=== PATIENT | male | born 1945 | race Caucasian/White ===

== ENCOUNTER 2018-10-27 17:53 | Observation (INO) | payer MEDICARE, OTHER ==
[~2018-10-27] VITALS: Ht 185.4 cm; Wt 105.3 kg
[~2018-10-27 17:53] MED LIST: CIPRO 500MG TA500 MG PO; GLUCOPHAGE1000 MG PO; NO HOME MEDICATIONS; NORCO 325 MG-51 TAB PO; ZOFRAN 4MG T4 MG/TAB PO
[2018-10-27] MEDS ORDERED: LIPITOR 40MG TA40 MG PO (18:36)
[2018-10-27] MEDS ORDERED: GLUCOTROL 5M5 MG/TAB PO (18:37)
[2018-10-27 19:31] LABS: COLLECTION METHOD CLEAN CATCH
[2018-10-27 19:41] LABS: BASO # 0.1 (0.0-0.2); BASO % 0.5 % (0.0-2.0); EOS # 0.2 (0.0-0.7); EOS % 1.6 % (0-4.0); HEMATOCRIT 39.9 % (42.0-52.0); HEMOGLOBIN 13.5 g/dl (13.5-18.0); LYMPH % 9.7 % (20.0-51.0); MEAN CELL VOLUME 89 fl (80.0-100.0); MEAN CORPUSCULAR HEMOGLOBIN 30 pg (27.0-31.0); MEAN CORPUSCULAR HGB CONC 34 g/dl (33.0-37.0); MEAN PLATELET VOLUME 10.4 fl (7.4-10.4); MONO # 0.9 (0.1-0.6); MONO % 8.4 % (1.7-9.3); PLATELET COUNT 387 K/mm3 (130-400); RED BLOOD COUNT 4.48 M/mm3 (4.20-5.60)
[2018-10-27 19:44] LABS: INR 1.1 (0.8-3.0); PROTHROMBIN TIME 13.3 SECONDS (9.7-12.8)
[2018-10-27 19:50] LABS: ALANINE AMINOTRANSFERASE 46 U/L (21-72); ALBUMIN 3.6 gm/dL (3.5-5.0); ALKALINE PHOSPHATASE 103 U/L (50-136); ANION GAP 13 mmol/L (7-16); AST,SGOT 33 U/L (15-37); BILIRUBIN,TOTAL 0.7 mg/dL (0.0-1.0); BLOOD UREA NITROGEN 21 mg/dL (9-20); CALCIUM 8.8 mg/dL (8.4-10.2); CARBON DIOXIDE 21 mmol/L (22-30); CHLORIDE 101 mmol/L (98-107); CREATININE, serum 0.94 (0.66-1.25); GLUCOSE 287 mg/dL (74-106); POTASSIUM 4.5 mmol/L (3.4-5.0); SODIUM 136 mmol/L (137-145); TOTAL PROTEIN 7.5 gm/dL (6.4-8.2)
[2018-10-27 20:00] LABS: TROPONIN-I < 0.012 ng/mL (0.000-0.035)
[2018-10-27 20:01] LABS: C-REACTIVE PROTEIN 16.4 mg/dL (0.0-0.9)
[2018-10-27 20:07] LABS: PH 5 (5-8); SQUAMOUS EPITHELIAL 0-2 /hpf; URINE APPEARANCE Turbid; URINE BACTERIA Rare /hpf; URINE BILIRUBIN Negative (NEGATIVE); URINE BLOOD 2+ (NEGATIVE); URINE COLOR Yellow; URINE GLUCOSE 3+ (NEGATIVE); URINE KETONE Negative (NEGATIVE); URINE LEUKOCYTE ESTERASE 3+ (NEGATIVE); URINE NITRATE Positive (NEGATIVE); URINE PROTEIN(semi-quant) 1+ (NEGATIVE); URINE UROBILINOGEN Negative (NEGATIVE)
--- NOTE | 2018-10-27 22:46 | NUR ---
Pt. arrived to the floor via wheelchair. Pt. is A&OX3, assessment complete. INT to lt. hand. Pt. denies pain or other needs, call light within reach.
[2018-10-27 23:05] VITALS: BP 107/78; PULSE 86; TEMP 97.7
[2018-10-28] VITALS (7 sets, daily range): BP systolic 107–148; BP diastolic 61–93; PULSE 80–90; TEMP 97.7–98.6
[2018-10-28 06:58] LABS: HEMOGLOBIN 11.8 g/dl (13.5-18.0); MEAN CELL VOLUME 90 fl (80.0-100.0); MEAN CORPUSCULAR HEMOGLOBIN 30 pg (27.0-31.0); MEAN CORPUSCULAR HGB CONC 34 g/dl (33.0-37.0); MEAN PLATELET VOLUME 10.3 fl (7.4-10.4); PLATELET COUNT 315 K/mm3 (130-400); RED BLOOD COUNT 3.93 M/mm3 (4.20-5.60); REDCELL DISTRIBUTION WIDTH-CV 13.3 % (11.5-14.5)
[2018-10-28 07:11] LABS: ANION GAP 10 mmol/L (7-16); BLOOD UREA NITROGEN 17 mg/dL (9-20); CALCIUM 7.9 mg/dL (8.4-10.2); CARBON DIOXIDE 22 mmol/L (22-30); CHLORIDE 105 mmol/L (98-107); CREATININE, serum 0.84 (0.66-1.25); GLUCOSE 253 mg/dL (74-106); SODIUM 137 mmol/L (137-145)
[2018-10-28 07:18] LABS: ACETONE,SERUM NEGATIVE; HEMATOCRIT 35.2 % (42.0-52.0)
[2018-10-28 08:06] LABS: BAND 2 % (0-10); EOSINOPHIL 1 % (0-4); LYMPHOCYTE 24 % (20.0-51.0); NEUTROPHILS 61 % (42.0-75.2); PLATELET ESTIMATE NORMAL (NORMAL)
--- NOTE | 2018-10-28 11:08 | NUR ---
SW met with the patient to discuss discharge plan. The patient lives alone in [place]. He states his sister, Yajaira, lives here in town. He reports independence with ADLs and does not have any DME. The patient's PCP is Dr. Jono Garcia and he receives his medications through [facility] and the [facility]. He reports no difficulties obtaining his meds. The patient does not have advanced directives and he was not interested in completing them at this time. The patient states his next of kin is his sisters, Yajaira and Demetria. The patient plans to return home upon discharge. No additional needs a at this time.
--- NOTE | 2018-10-28 20:45 | NUR ---
Pt. sitting up in bed at this time. Pt. is A&OX3, assessment is complete. IV to lt. hand patent, IV fluids infusing per orders. Pt. denies pain or other needs, call light within reach.
[2018-10-29 04:19] VITALS: BP 128/71; PULSE 78; TEMP 98.6
[2018-10-29 07:05] LABS: MEAN CELL VOLUME 91 fl (80.0-100.0); MEAN CORPUSCULAR HEMOGLOBIN 30 pg (27.0-31.0); MEAN CORPUSCULAR HGB CONC 33 g/dl (33.0-37.0); MEAN PLATELET VOLUME 10.4 fl (7.4-10.4); PLATELET COUNT 301 K/mm3 (130-400); RED BLOOD COUNT 3.72 M/mm3 (4.20-5.60); REDCELL DISTRIBUTION WIDTH-CV 13.4 % (11.5-14.5)
[2018-10-29 07:23] LABS: CALCIUM 7.7 mg/dL (8.4-10.2); CHOLESTEROL RISK RATIO 6.8; CREATININE, serum 0.76 (0.66-1.25); POTASSIUM 3.7 mmol/L (3.4-5.0)
[2018-10-29 07:46] LABS: HEMATOCRIT 33.8 % (42.0-52.0)
[2018-10-29 07:58] VITALS: BP 112/66; PULSE 74; TEMP 98.8
[2018-10-29 08:28] LABS: BAND 5 % (0-10); EOSINOPHIL 3 % (0-4); LYMPHOCYTE 8 % (20.0-51.0); NEUTROPHILS 76 % (42.0-75.2); PLATELET ESTIMATE NORMAL (NORMAL)
[2018-10-29] MEDS ORDERED: FLOMAX 0.40.4 MG/CAP PO (08:56)
[2018-10-29] MEDS ORDERED: GLUCOTROL XL10 MG PO (08:57)
[2018-10-29] MEDS ORDERED: OMNICEF 300MG300 MG PO (08:58)
[2018-10-29] MEDS ORDERED: FREESTYLE PREC1 EAC5 MC (09:18)
[2018-10-29] MEDS ORDERED: LANCETS MC (09:18)
[2018-10-29] MEDS ORDERED: GLUCOSE TEST ST1 DEV MC (09:18)
--- NOTE | 2018-10-29 09:30 | NUR ---
SW attended clinical rounds. The patient is to discharge back home today, 10/29. The patient requested that SW contact his sister, Yajaira, to inform for transport back home. SW contacted his sister and she plans to bring the patient back home. No additional needs at this time.
--- NOTE | 2018-10-29 10:00 | NUR ---
Patient alert and oriented, answers questions appropriately. See assessment. No c/o urinary frequency, hesitancy or burning. States voiding adequate amounts. Encouraged fluid intake. No other c/o at this time.
--- NOTE | 2018-10-29 11:41 | NUR ---
First visit from the hydrogen treater. No needs right now.
--- NOTE | 2018-10-29 12:01 | NUR ---
Discharge instructions reviewed with patient and sister, verbalized understanding. Discharged via wheelchair to auto/home with sister at 1140.
== END 2018-10-29 11:40 | disposition home or self-care (01) ==
LOC: COL.ER 17:53 → SURG 21:37
PROVIDERS: Emergency Medicine; Nurse Practitioner; Nurse Practitioner Family; ADMIT Family Medicine
DX: N39.0 Urinary tract infection, site not specified (principal); R53.81 Other malaise; E11.40 Type 2 diabetes mellitus with diabetic neuropathy, unspecified; E78.5 Hyperlipidemia, unspecified; E87.1 Hypo-osmolality and hyponatremia; N40.0 Benign prostatic hyperplasia without lower urinary tract symptoms; Z87.891 Personal history of nicotine dependence; Z88.2 Allergy status to sulfonamides; Z93.3 Colostomy status; Z85.038 Personal history of other malignant neoplasm of large intestine
CPT/HCPCS: A4216; G0378; J0696; J1815; J7030; Q9967

== ENCOUNTER → 2018-11-20 | Outpatient (CLI) | payer MEDICARE, OTHER ==
[~2018-11-20] MED LIST changes: +FLOMAX 0.40.4 MG/CAP PO; +FREESTYLE PREC1 EAC5 MC; +GLUCOSE TEST ST1 DEV MC; +GLUCOTROL 5M5 MG/TAB PO; +GLUCOTROL XL10 MG PO; +LANCETS MC; +LIPITOR 40MG TA40 MG PO; +OMNICEF 300MG300 MG PO
== END ==
LOC: DIA.ED 14:07
DX: E11.40 Type 2 diabetes mellitus with diabetic neuropathy, unspecified (principal); E78.5 Hyperlipidemia, unspecified; E66.9 Obesity, unspecified
CPT/HCPCS: G0108

== ENCOUNTER → 2018-12-19 | Outpatient (CLI) | payer MEDICARE, OTHER | LOC: DIA.ED 07:13 | DX: E11.9 Type 2 diabetes mellitus without complications (principal); E11.40 Type 2 diabetes mellitus with diabetic neuropathy, unspecified; E78.5 Hyperlipidemia, unspecified; E66.9 Obesity, unspecified ==

== ENCOUNTER → 2019-01-22 | Outpatient (CLI) | payer MEDICARE | LOC: DIA.ED 08:56 | DX: E11.40 Type 2 diabetes mellitus with diabetic neuropathy, unspecified (principal); E78.5 Hyperlipidemia, unspecified; E66.9 Obesity, unspecified ==

== ENCOUNTER 2019-02-05 13:59 | Day surgery (SDC) | payer MEDICARE, OTHER ==
[2019-02-05] VITALS (9 sets, daily range): BP systolic 107–117; BP diastolic 62–76; PULSE 57–79; TEMP 97.5–98.4
[~2019-02-05] VITALS: Ht 182.9 cm; Wt 109.9 kg
--- NOTE | 2019-02-05 17:08 | NUR ---
PT TO ROOM 343 PER BED WITH REG TRANSPORTING. REPORT FROM SABRINA ZIEGLER @2623 PT HAS [place] TO RIGHT LEG BAG. WITH SM AMT OF REDDISH DRAINAGE. PT HAS EXISTING COLOSTOMY TO LEFT SIDE OF ABDOMEN THAT PT MANAGES INDEPENDENTLY. SISTER AT BED SIDE. ORIENTED TO ROOM.
--- NOTE | 2019-02-05 17:38 | NUR ---
PT RESTING COMFORTABLY IN BED, DENIES NEEDS.
--- NOTE | 2019-02-05 18:58 | NUR ---
REPORT TO JEFF ZIEGLER.
--- NOTE | 2019-02-05 21:55 | NUR ---
Pt doing well. Ambulated 150ft in hallway with no issues. A/o, with vss. Denies pain at this time. Has leg bag with clear yellow urine. IV in L hand. Denies needs at this time. CAll light within reach, will continue to monitor
[2019-02-06 00:02] VITALS: BP 118/86; PULSE 64; TEMP 98.2
[2019-02-06 04:09] VITALS: BP 132/67; PULSE 58; TEMP 97.7
--- NOTE | 2019-02-06 07:07 | NUR ---
Report from Magnolia ZIEGLER. Leg bag emptied of clear yellow urine. 450 mls out, pt denies pain or needs at this time.
[2019-02-06 08:00] VITALS: BP 130/69; PULSE 63; TEMP 98
--- NOTE | 2019-02-06 09:31 | NUR ---
Police Records Clerk met with the patient to discuss discharge planning. Patient lives alone in [place], but has sister Yajaira (ph#[phone]) that lives in [place] and a sister Demetria (ph#[phone]) that lives in [place]. Patient states he sees Dr. Garcia for primary care and obtains medications from [facility] with no issue. Patient obtains ostomy supplies from [facility] pharmacy. Patient reports independence with ADLS and does not have any DME. Patient does not have Advance Directives in place and was not interested in setting up DPOA-HC at this time. Patient has no concerns about returning home upon discharge.
--- NOTE | 2019-02-06 09:46 | NUR ---
[place] CATHETER DISCONTNUED PER DR FLORES. PT TOLERATED WELL, INSTRUCTED PT ON 6 BTL ROUTINE. PT VERBALIZED UNDERSTANDING.
--- NOTE | 2019-02-06 10:14 | NUR ---
Initial visit; Patient thanked Dental Service Chief for looking in on him and offering God's blessings.
[2019-02-06 11:52] VITALS: BP 106/62; PULSE 68; TEMP 97.8
--- NOTE | 2019-02-06 15:45 | NUR ---
UPDATED DR. FLORES AND RECIEVED OK TO DISCHARAGE. INSTRUCTIONS PROVIDED TO PATIENT. PT LEFT AMBULATORY WITH STAFF.
== END 2019-02-06 15:55 | disposition home or self-care (01) ==
LOC: SDCO 13:59 → SURG 16:54 → SDCO 02-06 15:55
DX: N35.819 Other urethral stricture, male, unspecified site (principal); N40.1 Benign prostatic hyperplasia with lower urinary tract symptoms; R39.15 Urgency of urination; E11.9 Type 2 diabetes mellitus without complications; Z85.038 Personal history of other malignant neoplasm of large intestine; Z79.84 Long term (current) use of oral hypoglycemic drugs; Z88.2 Allergy status to sulfonamides; Z87.891 Personal history of nicotine dependence; Z83.3 Family history of diabetes mellitus; Z82.49 Family history of ischemic heart disease and other diseases of the circulatory system; Z84.1 Family history of disorders of kidney and ureter; Z90.49 Acquired absence of other specified parts of digestive tract; M19.90 Unspecified osteoarthritis, unspecified site
CPT/HCPCS: OP; J0690; J1100; J2405; J2704; J3010

== ENCOUNTER 2022-05-23 08:51 | Day surgery (SDC) | payer MEDICARE, OTHER ==
[~2022-05-23] VITALS: Ht 185.4 cm; Wt 93.3 kg
[~2022-05-23 08:51] MED LIST changes: +AMOXICILLIN 8751 TAB PO; +GLUCOPHAGE500 MG/TAB PO; +GLUCOTROL XL2.5 MG PO; +GLUCOTROL XL5 MG/TAB PO
[2022-05-23] MEDS ORDERED: GLUCOTROL XL5 MG/TAB PO (10:19)
[2022-05-23] MEDS ORDERED: GLUCOPHAGE500 MG/TAB PO (10:20)
[2022-05-23] MEDS ORDERED: GLUCOTROL 5M5 MG/TAB PO (10:21)
[2022-05-23 10:27] VITALS: BP 114/73; PULSE 77; TEMP 97.7
[2022-05-23 10:45] VITALS: BP 105/74; PULSE 78; TEMP 97.7
--- NOTE | 2022-05-23 10:45 | NUR ---
1045 PATIENT RETURNS TO ROOM 5 VIA CART. PATIENT IS ALERT AND ORIENTED. PATIENT AMBULATES BACK TO RECINER IN ROOM WITH THE ASSISTANCE OF 2 NURSES. RESPIRATIONS EVEN AND UNLABORED. VITAL SIGNS OBTAINED. 1045 DOCTOR SPEAKS WITH PATIENT ABOUT PROCEDURE. 1050 PATIENT REQUESTED A DIET COKE AND A MUFFIN. NO DIFFICULTIES SWALLOWING. 1105 THIS NURSE REVIEWED DISCHARGE INSTRUCTIONS WITH PATIENT. PATIENT VERBALIZED UNDERSTANDING WITH NO QUESTIONS OR CONCERNS. 1110 THIS NURSE DISCONTINUED IV FROM RIGHT HAND WITH NO DIFFICULTIES. 1113 PATIENT DRESSES SELF. 1120 PATIENT DISCHARGES FROM UNIT VIA WHEELCHAIR.
[2022-05-23 11:00] VITALS: BP 102/67; PULSE 72
[2022-05-23 11:14] VITALS: BP 114/66; PULSE 64
== END 2022-05-23 11:20 | disposition home or self-care (01) ==
LOC: SDCO 08:51
DX: Z12.11 Encounter for screening for malignant neoplasm of colon (principal); D12.2 Benign neoplasm of ascending colon; F17.210 Nicotine dependence, cigarettes, uncomplicated; Z98.0 Intestinal bypass and anastomosis status; Z85.048 Personal history of other malignant neoplasm of rectum, rectosigmoid junction, and anus
CPT/HCPCS: J2704; J7120

== ENCOUNTER 2023-05-22 09:46 | Emergency (ER) | payer MEDICARE, OTHER ==
[~2023-05-22] VITALS: Ht 182.9 cm; Wt 113.6 kg
[2023-05-22] MEDS ORDERED: NORCO 325 MG-51 TAB PO (11:27)
[2023-05-22 12:00] VITALS: BP 121/88; PULSE 88
== END 2023-05-22 12:00 | disposition home or self-care (01) ==
LOC: COL.ER 09:46
DX: S22.32XA Fracture of one rib, left side, initial encounter for closed fracture (principal); W05.0XXA Fall from non-moving wheelchair, initial encounter; W22.8XXA Striking against or struck by other objects, initial encounter; Y93.01 Activity, walking, marching and hiking
CPT/HCPCS: A9284